=== PATIENT | male | born 1985 | race Caucasian/White ===

== ENCOUNTER 2016-07-10 17:52 | Emergency (ER) | payer OTHER ==
[~2016-07-10] VITALS: Ht 190.5 cm; Wt 124.0 kg
[2016-07-10 18:06] VITALS: BP 139/68; TEMP 36.9; Ht 190.5 cm; Wt 124.0 kg
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
[2016-07-10] MEDS ORDERED: CYCL10TA6 PO (19:19)
[2016-07-10 19:25] VITALS: PULSE 86; O2SAT 98
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
== END 2016-07-10 19:26 | disposition home or self-care (01) ==
LOC: C.EDB 17:52 → C.EDD 19:26
DX: S16.1XXA Strain of muscle, fascia and tendon at neck level, initial encounter (principal); V43.52XA Car driver injured in collision with other type car in traffic accident, initial encounter; Y92.89 Other specified places as the place of occurrence of the external cause; Y99.0 Civilian activity done for income or pay; R51 Headache; Z98.890 Other specified postprocedural states